=== PATIENT | female | born 1995 | race African-American/Black ===

== ENCOUNTER 2017-02-19 21:44 | Outpatient (CLI) | payer OTHER | END 2017-02-19 21:45 | disposition EMS.NT | LOC: EMS 21:44 | PROVIDERS: ATTEND Surgery | DX: R11.10 Vomiting, unspecified (principal); R55 Syncope and collapse ==

== ENCOUNTER 2017-02-19 22:35 | Emergency (ER) | payer OTHER ==
[2017-02-20] MEDS ORDERED: ONDANSETRON ODT 4 MG Prepack 2 TL STA (00:38)
[2017-02-20] MEDS ORDERED: ONDANSETRON ODT 4 MG TABLET TL STA (00:38)
[2017-02-20] MEDS ORDERED: ONDANSETRON ODT 4 MG TABLET ONE (00:41)
[2017-02-20] MEDS ORDERED: ONDANSETRON ODT 4 MG Prepack 2 TL ONE (00:41)
== END 2017-02-20 00:46 | disposition home or self-care (01) ==
DX: R11.2 Nausea with vomiting, unspecified (principal)
CPT/HCPCS: 36415; 80053; 81003; 81025; 83690; 85025; 99283; Q0162